=== PATIENT | male | born 1970 | race Caucasian/White ===

== ENCOUNTER 2016-08-09 19:10 | Emergency (ER) | payer BC, OTHER ==
[2016-08-09 19:22] VITALS: RESP 16; O2SAT 96
[2016-08-09] MEDS ORDERED: TDAP ADULT 0.5 ML INJ (BOOSTRIX) IM ONE (19:23)
[2016-08-09] MEDS ORDERED: LET GEL TOPICAL 1 EA SYR TP ONE (19:34)
[2016-08-09 19:55] VITALS: BP 129/76; PULSE 65
--- NOTE | 2016-08-09 20:14 | EDPHY ---
H & P Time Seen by Provider: 08/09/16 19:34 HPI/ROS: This patient was using a mandolin slicer at home when he sustained a skin avulsion to the dorsum of his right middle finger with moderate study bleeding since the incident occurred shortly prior to arrival. Despite direct pressure the bleeding persists. He reports mild pain from the injury. He denies any other associated symptoms or any other associated injuries. ROS: Neuro: No numbness or tingling the affected finger. Musculoskeletal: No difficulty extending the affected finger flexing it. 5 point ROS is otherwise negative Past Medical/Surgical History: otherwise healthy Smoking Status: Current some day smoker Physical Exam: Physical Exam Vital signs are normal. General: No acute distress Cardiac: Brisk capillary refill is intact throughout. Skin: No rash or pallor. Extremities: Atraumatic normal except for right middle finger right middle finger: Patient has a 1.5 x 1 cm skin avulsion with moderate study venous bleeding. Subcutaneous tissues evident but there is no tendon exposure or deeper structures injured. No foreign bodies under examination. He maintains full range of motion of the finger Neuro: Alert with no sensorimotor deficits in the affected finger Constitutional: Initial Vital Signs Heart Rate 68 08/09/16 19:20 Respiratory Rate 16 08/09/16 19:20 Blood Pressure 148/80 H 08/09/16 19:20 O2 Sat (%) 96 08/09/16 19:20 O2 Delivery Mode Room Air Allergies/Adverse Reactions: No Known Allergies Allergy (Verified 04/19/14 08:09) Home Medications: Medication Instructions Recorded NK [No Known Home Meds] 04/19/14 MDM/Departure - MDM Medications Given: Discontinued Medications Diphtheria/Tetanus/Acell Pertussis (Boostrix) 0.5 ml IM .ONCE ONE Stop: 08/09/16 19:24 Last Admin: 08/09/16 19:36 Dose: 0.5 ml Tetracaine/Epinephrine/Lidocaine (Let Gel Topical) 1 ea TP EDNOW ONE Stop: 08/09/16 19:35 Last Admin: 08/09/16 19:40 Dose: 1 ea ED Course/Re-evaluation: let solution followed by wound cleaning by our tech Sharona. I then used a Archer drain As a constricted to the proximal fingerto achieve brief hemostasis to thoroughly examine the wound, followed by Surgicel dressing and tube gauze with hemostasis. I counseled patient regarding wound care. - Depart Disposition: Home, Routine, Self-Care Clinical Impression: Avulsion of skin of finger Qualifiers: Encounter type: initial encounter Qualified Code(s): S61.209A - Unspecified open wound of unspecified finger without damage to nail, initial encounter Condition: Good Instructions: Skin Avulsion (ED) Additional Instructions: Diagnosis: Skin avulsion of middle finger Plan: Keep the dressing on for 2-3 days clean and dry. Then soak it and peroxide to remove the dressing. Thereafter, clean gently with warm soapy water daily and apply dressing while your active. Remove the dressing for the day to get air to the wound. Ibuprofen Tylenol for discomfort if needed Follow up with the hand specialist if the wound is not healing or for any concerns of Rebleeding or infection -redness, discharge or other return here for a recheck. Referrals: Mathieu Tran MD [Primary Care Provider] - As per Instructions Bartolome Omalley MD [Medical Doctor] - As per Instructions
== END 2016-08-09 20:20 | disposition home or self-care (01) ==
LOC: CED 19:10
PROC: 3E0234Z Introduction of Serum, Toxoid and Vaccine into Muscle, Percutaneous Approach (ICD-10-PCS; principal; 2016-08-09)
DX: S61.202A Unspecified open wound of right middle finger without damage to nail, initial encounter (principal); F17.200 Nicotine dependence, unspecified, uncomplicated; Z23 Encounter for immunization; W27.8XXA Contact with other nonpowered hand tool, initial encounter; Y92.009 Unspecified place in unspecified non-institutional (private) residence as the place of occurrence of the external cause